=== PATIENT | female | born 1965 | race Caucasian/White ===

== ENCOUNTER 2017-05-13 10:55 | Inpatient (IN) | payer OTHER ==
[~2017-05-13] VITALS: Ht 167.6 cm; Wt 120.7 kg
--- NOTE | ~2017-05-13 | EKG ---
[address] [address] ELECTROCARDIOGRAM REPORT Name: BUD PAGE Room #: 418-P ADM IN M.R.#: [id number] Admission: 05/13/17 Attend Phys: Amadeo Garza DO Discharge: Date of : 63 Report #: [id number] THIS REPORT FOR: //name// [facility] ED Test Date: 2017-05-13 Test Time: 11:46:15 Pat Name: BUD PAGE Department: Room: [facility] Gender: F Reservations And Ticketing Agent: Katheryn CANTRELL : 1965 Requested By: Sunita Owens Order Number: [id number] MD: Fran Sánchez Measurements Intervals Burket Rate: 101 P: 50 ID: [id number] QRS: 35 QRSD: 86 T: 45 QT: 319 QTc: 414 Interpretive Statements Sinus tachycardia Compared to ECG 08/18/2013 16:59:04 No significant changes Electronically Signed On 05-14-2017 8:22:19 RECOVERY ASSISTANT by Fran Sánchez [email or web address] <ELECTRONICALLY SIGNED> By: Fran Sánchez MD 05/14/17 0822 D: 12/1145 1146 Fran Sánchez MD /FILOMENA
[~2017-05-13 10:55] MED LIST: EFFEXOR XR150 MG PO; LISINOPRIL-HCT1 EAC2 PO; LISINOPRIL20 MG PO; PRAVACHOL 20 MG20 M1 PO; PROZAC20 MG PO; RISPERDAL4 M1 PO
[2017-05-13 10:56] VITALS: BP 115/78
[2017-05-13] MEDS ORDERED: VENTOLIN HFA 1818 GM INH (11:14)
[2017-05-13] MEDS ORDERED: CARDIZEM30 MG PO (11:16)
[2017-05-13] MEDS ORDERED: NORVASC2.5 MG PO (11:16)
[2017-05-13 11:29] LABS: ABSOLUTE NEUTROPHILS 11.7 thou/uL (1.4-8.2); BASOPHILS 0.4 % (0.0-2.0); EOSINOPHILS 0.8 % (0.0-3.0); HEMATOCRIT 39.6 % (37.0-47.0); HEMOGLOBIN 13.4 gm/dL (12.0-15.0); MCH 32.1 pg (26.0-34.0); MCHC 33.9 g/dL (28.0-37.0); MCV 94.8 fL (80.0-100.0); MONOCYTES 6.6 % (1.0-8.0); PLATELET COUNT 290 thou/uL (150-400); POLYS 80.2 % (36.0-66.0); RBC 4.18 mil/uL (4.20-5.00); RDW 13.4 % (10.5-14.5); WBC 14.6 thou/uL (4.0-11.0)
[2017-05-13 11:38] LABS: CALCIUM 8.9 mg/dL (8.5-10.1); CREATININE 1.1 mg/dL (0.6-1.0); POTASSIUM 4.2 mmol/L (3.5-5.1)
[2017-05-13 11:44] LABS: ALBUMIN 3.3 g/dL (3.4-5.0); TOTAL BILIRUBIN 0.8 mg/dL (<0.1-1.0); TOTAL PROTEIN 7.1 g/dL (6.4-8.2)
[2017-05-13 13:40] VITALS: BP 102/66
[2017-05-13 15:09] VITALS: BP 108/69
[2017-05-13 16:00] VITALS: BP 127/78
[2017-05-13 16:02] VITALS: BP 127/78
[2017-05-13 19:26] VITALS: BP 123/79
[2017-05-14 04:38] VITALS: BP 137/74
[2017-05-14 07:33] LABS: ABSOLUTE NEUTROPHILS 5.2 thou/uL (1.4-8.2); BASOPHILS 0.8 % (0.0-2.0); EOSINOPHILS 1.4 % (0.0-3.0); HEMATOCRIT 34.8 % (37.0-47.0); HEMOGLOBIN 11.8 gm/dL (12.0-15.0); LYMPHOCYTES 21.3 % (24.0-44.0); MCH 32.6 pg (26.0-34.0); MCHC 33.8 g/dL (28.0-37.0); MCV 96.5 fL (80.0-100.0); PLATELET COUNT 255 thou/uL (150-400); POLYS 68.5 % (36.0-66.0); RBC 3.61 mil/uL (4.20-5.00); RDW 13.7 % (10.5-14.5); WBC 7.6 thou/uL (4.0-11.0)
[2017-05-14 07:45] VITALS: BP 118/60
[2017-05-14 07:47] LABS: CALCIUM 8.4 mg/dL (8.5-10.1); CREATININE 1.1 mg/dL (0.6-1.0); POTASSIUM 4.4 mmol/L (3.5-5.1)
[2017-05-14 16:29] VITALS: BP 111/57
[2017-05-14 19:59] VITALS: BP 103/56
[2017-05-15 04:26] VITALS: BP 103/64
[2017-05-15 07:11] VITALS: BP 158/87
[2017-05-15] MEDS ORDERED: AZITHROMYCIN 2250 MG PO (08:36)
[2017-05-15] MEDS ORDERED: KEFLEX500 M1 PO (08:36)
[2017-05-15] MEDS ORDERED: MEDROL DOSPAK21 TA1 PO (08:36)
[2017-05-15] MEDS ORDERED: SYMBICORT160 MCG/4. INH (08:38)
[2017-05-15 10:16] LABS: ABSOLUTE NEUTROPHILS 11.6 thou/uL (1.4-8.2); BASOPHILS 0.1 % (0.0-2.0); HEMATOCRIT 35.7 % (37.0-47.0); HEMOGLOBIN 11.8 gm/dL (12.0-15.0); LYMPHOCYTES 3.1 % (24.0-44.0); MCHC 32.9 g/dL (28.0-37.0); MCV 97.3 fL (80.0-100.0); MONOCYTES 2.2 % (1.0-8.0); PLATELET COUNT 268 thou/uL (150-400); POLYS 94.6 % (36.0-66.0); RBC 3.67 mil/uL (4.20-5.00); RDW 13.7 % (10.5-14.5); WBC 12.3 thou/uL (4.0-11.0)
[2017-05-15 10:28] LABS: CALCIUM 8.6 mg/dL (8.5-10.1); CREATININE 1.1 mg/dL (0.6-1.0)
[2017-05-15 12:34] VITALS: BP 158/87
== END 2017-05-15 14:32 | disposition home or self-care (01) | DRG 871 ==
LOC: ER 10:55 → 4E 13:27 → EROBS 13:27 → 4E 14:25
PROVIDERS: Family Medicine; Physician Assistant
DX: A41.9 Sepsis, unspecified organism (principal); J18.9 Pneumonia, unspecified organism; J96.00 Acute respiratory failure, unspecified whether with hypoxia or hypercapnia; J40 Bronchitis, not specified as acute or chronic; F32.9 Major depressive disorder, single episode, unspecified; E78.00 Pure hypercholesterolemia, unspecified; I10 Essential (primary) hypertension; Z79.899 Other long term (current) drug therapy; Z87.891 Personal history of nicotine dependence
CPT/HCPCS: 10183